=== PATIENT | male | born 1945 | race Caucasian/White ===

== ENCOUNTER 2021-08-25 10:46 | Emergency (ER) | payer MEDICARE ==
[~2021-08-25] VITALS: Ht 175.3 cm; Wt 79.4 kg
[2021-08-25] MEDS ORDERED: TAMSULOSIN HCL0.4 M1 PO ×2 (23:12)
[2021-08-25] MEDS ORDERED: METFORMIN HCL500 M3 PO ×2 (23:14)
[2021-08-25] MEDS ORDERED: LISI20 PO ×2 (23:14)
[2021-08-25] MEDS ORDERED: PRED5 PO ×2 (23:15)
[2021-08-25] MEDS ORDERED: Simvastatin40 MG PO ×2 (23:15)
[2021-08-25] MEDS ORDERED: HYDMOR4 PO ×2 (23:16)
[2021-08-25] MEDS ORDERED: NEURONTIN300 MG PO ×2 (23:16)
[2021-08-25] MEDS ORDERED: CYCL10 PO ×2 (23:18)
== END 2021-08-25 13:38 | disposition home or self-care (01) ==
LOC: ER 10:46
DX: K59.00 Constipation, unspecified (principal)
CPT/HCPCS: 74018; A9270

== ENCOUNTER 2021-08-25 22:11 | Observation (INO) | payer MEDICARE ==
[~2021-08-25] VITALS: Ht 175.3 cm; Wt 95.2 kg
[2021-08-25] MEDS ORDERED: TAMSULOSIN HCL0.4 M1 PO ×2 (23:12)
[2021-08-25 23:14] LABS: BASOPHILS ABSOLUTE AUTO 0.04 K/mm3 (0.00-0.23); BASOPHILS PERCENT AUTO 0 % (0-2); EOSINOPHILS ABSOLUTE AUTO 0.05 K/mm3 (0.00-0.68); EOSINOPHILS PERCENT AUTO 1 % (0-6); Hematocrit 35.2 % (37.0-53.0); Hemoglobin 11.7 g/dL (13.5-17.5); IMMATURE GRAN PERCENT AUTO 1 % (0-1); LYMPHOCYTES ABSOLUTE AUTO 1.48 K/mm3 (0.84-5.20); LYMPHOCYTES PERCENT AUTO 13 % (21-46); MONOCYTES ABSOLUTE AUTO 0.77 K/mm3 (0.16-1.47); MONOCYTES PERCENT AUTO 7 % (4-13); Mean Corpuscular HGB 30.8 pg (26.0-34.0); Mean Corpuscular HGB Conc 33.2 g/dL (31.5-36.5); Mean Corpuscular Volume 93 fL (80-100); Mean Platelet Volume 8.8 fL (9.1-12.4); NEUTROPHILS ABSOLUTE AUTO 8.63 K/mm3 (1.96-9.15); NEUTROPHILS PERCENT AUTO 78 % (41-73); Platelet Count 190 K/mm3 (150-400); RDW Coefficient Variation 13.3 % (11.7-14.2); RDW Standard Deviation 45.1 fL (35.1-46.3); White Blood Cell Count 11.07 K/mm3 (4.00-11.30)
[2021-08-25] MEDS ORDERED: LISI20 PO ×2 (23:14)
[2021-08-25] MEDS ORDERED: METFORMIN HCL500 M3 PO ×2 (23:14)
[2021-08-25] MEDS ORDERED: Simvastatin40 MG PO ×2 (23:15)
[2021-08-25] MEDS ORDERED: PRED5 PO ×2 (23:15)
[2021-08-25] MEDS ORDERED: HYDMOR4 PO ×2 (23:16)
[2021-08-25] MEDS ORDERED: NEURONTIN300 MG PO ×2 (23:16)
[2021-08-25] MEDS ORDERED: CYCL10 PO ×2 (23:18)
[2021-08-25 23:40] LABS: Troponin I <0.015 ng/mL (0.000-0.040)
[2021-08-25 23:46] LABS: Alanine Aminotransfer (ALT/SGP 29 U/L (12-78); Albumin, Blood 3.1 g/dL (3.4-5.0); Albumin/Globulin Ratio 0.9 (0.8-1.8); Alk Phos 108 U/L (50-136); Anion Gap 5 mmol/L (6-16); Aspartate Aminotrans (AST/SGOT 20 U/L (12-37); Bilirubin, Total 0.8 mg/dL (0.1-1.0); Blood Urea Nitrogen 48 mg/dL (8-24); Bun/Creatinine Ratio 18.1 (12.0-20.0); CO2, Blood 30 mmol/L (21-32); Calcium, Blood 9.4 mg/dL (8.5-10.1); Chloride, Blood 101 mmol/L (98-108); Creatinine, Blood 2.65 mg/dL (0.60-1.20); Globulin, Blood 3.6 g/dL (2.2-4.0); Glomerular Filtration Rate 24 (60-); Glucose, Blood 264 mg/dL (70-99); Potassium, Blood 6.1 mmol/L (3.5-5.5); Sodium, Blood 136 mmol/L (136-145); Total Protein, Blood 6.7 g/dL (6.4-8.2)
[2021-08-26 04:06] LABS: Source, Urine Clean Catch
[2021-08-26 04:08] LABS: Blood, Urine 5+ (Neg); Glucose Qualitative, Urine 2+ (Neg); Ketones, Urine Neg (Neg); Leukocyte Esterase, Urine 1+ (Neg); Nitrite, Urine Neg (Neg); Protein, Urine 3+ (Neg); Specific Gravity, Urine 1.015 (1.003-1.022); Urobilinogen, Urine NORM (Normal)
[2021-08-26 04:31] LABS: Amorphous Light (0-Heavy); Appearance, Urine Hazy (Clear); Bacteria Few /hpf; Bilirubin, Urine 1+ (Neg); Color, Urine Yellow (P-Yellow); Red Blood Cells, Urine 50-100 /hpf (0-2); Squamous Epithelial Cells Rare /hpf (Few); White Blood Cells, Urine 0-2 /hpf (0-5)
--- NOTE | 2021-08-26 07:28 | NUR ---
PT IS ALERT AND ORIENTED X4. DENIES PAIN. SINCE ARRIVAL FROM ER, PT IS HAVING DIARRHEA. BASELINE PT IS INDEPENDENT AT HOME. BED ALARM ON. SBA TO THE COMMODE; HAS LIGHT DIZZYNESS.
[2021-08-26 08:11] LABS: Bun/Creatinine Ratio 17.9 (12.0-20.0); Calcium, Blood 8.2 mg/dL (8.5-10.1); Creatinine, Blood 2.62 mg/dL (0.60-1.20); Potassium, Blood 5.2 mmol/L (3.5-5.5)
[2021-08-26 08:17] LABS: Magnesium, Blood 5.5 mg/dL (1.6-2.4)
[2021-08-26 13:39] LABS: Albumin, Blood 2.8 g/dL (3.4-5.0); Anion Gap 1 mmol/L (6-16); Blood Urea Nitrogen 46 mg/dL (8-24); Bun/Creatinine Ratio 18.3 (12.0-20.0); CO2, Blood 32 mmol/L (21-32); Calcium, Blood 7.9 mg/dL (8.5-10.1); Chloride, Blood 107 mmol/L (98-108); Creatinine, Blood 2.51 mg/dL (0.60-1.20); Glomerular Filtration Rate 25 (60-); Glucose, Blood 157 mg/dL (70-99); Phosphorus, Blood 3.5 mg/dL (2.5-4.9); Potassium, Blood 4.8 mmol/L (3.5-5.5); Sodium, Blood 140 mmol/L (136-145)
[2021-08-26 13:45] LABS: Magnesium, Blood 5.3 mg/dL (1.6-2.4)
[2021-08-26 17:46] LABS: Source, Urine Clean Catch
[2021-08-26 17:56] LABS: Appearance, Urine Clear (Clear); Bilirubin, Urine Neg (Neg); Blood, Urine 2+ (Neg); Color, Urine Yellow (P-Yellow); Glucose Qualitative, Urine Neg (Neg); Ketones, Urine 1+ (Neg); Leukocyte Esterase, Urine Neg (Neg); Nitrite, Urine Neg (Neg); Protein, Urine 1+ (Neg); Urobilinogen, Urine NORM (Normal)
[2021-08-26 18:09] LABS: Bacteria Rare /hpf; Red Blood Cells, Urine 0-2 /hpf (0-2); Squamous Epithelial Cells Rare /hpf (Few); White Blood Cells, Urine 0-2 /hpf (0-5)
[2021-08-27 04:29] LABS: BASOPHILS ABSOLUTE AUTO 0.02 K/mm3 (0.00-0.23); BASOPHILS PERCENT AUTO 0 % (0-2); EOSINOPHILS ABSOLUTE AUTO 0.07 K/mm3 (0.00-0.68); EOSINOPHILS PERCENT AUTO 1 % (0-6); Hemoglobin 10.1 g/dL (13.5-17.5); IMMATURE GRAN ABSOLUTE AUTO 0.03 K/mm3 (0.00-0.10); IMMATURE GRAN PERCENT AUTO 0 % (0-1); LYMPHOCYTES PERCENT AUTO 12 % (21-46); MONOCYTES ABSOLUTE AUTO 0.56 K/mm3 (0.16-1.47); MONOCYTES PERCENT AUTO 8 % (4-13); Mean Corpuscular HGB 31.5 pg (26.0-34.0); Mean Corpuscular HGB Conc 33.7 g/dL (31.5-36.5); Mean Corpuscular Volume 94 fL (80-100); Mean Platelet Volume 8.6 fL (9.1-12.4); NEUTROPHILS ABSOLUTE AUTO 5.42 K/mm3 (1.96-9.15); NEUTROPHILS PERCENT AUTO 79 % (41-73); NRBC ABSOLUTE 0.02 K/mm3 (0.00-0.02); NRBC Auto 0.3 /100 WBC (0.0-0.2); Platelet Count 134 K/mm3 (150-400); RDW Coefficient Variation 13.2 % (11.7-14.2); RDW Standard Deviation 44.9 fL (35.1-46.3); Red Blood Cell Count 3.21 M/mm3 (4.30-5.90)
[2021-08-27 04:48] LABS: Albumin, Blood 2.3 g/dL (3.4-5.0); Albumin/Globulin Ratio 0.7 (0.8-1.8); Bilirubin, Total 0.9 mg/dL (0.1-1.0); Bun/Creatinine Ratio 18.6 (12.0-20.0); Calcium, Blood 8.1 mg/dL (8.5-10.1); Creatinine, Blood 2.21 mg/dL (0.60-1.20); Globulin, Blood 3.4 g/dL (2.2-4.0); Magnesium, Blood 4.1 mg/dL (1.6-2.4); Potassium, Blood 4.9 mmol/L (3.5-5.5); Total Protein, Blood 5.7 g/dL (6.4-8.2)
--- NOTE | 2021-08-27 05:41 | NUR ---
SHIFT SUMMARY ADMITTED FOR CONSITPATION AND DECREASE INTAKE. PT REPORTS DIARRHEA YESTERDAY, NO BM T/O SHIFT. INCONTINENT VOID WITH ATTENDS IN PLACE AND USE OF URINAL. PT AOX4. REPORTS GENERALIZE WEAKNESS AND SEVERE BACK PAIN OVERNIGHT. CALLED DR. LAINEZ TO REQUEST FOR PAIN MEDS BECAUSE PT STARTING TO FEEL NAUSEATED WITH PAIN.TYLENOL 650MG GIVEN, PAIN WITHOUT IMPROVEMENT. FENTANYL 25-50MCG ORDERED. GIVEN 50MCG X1, PAIN HAS IMPROVED. LINEN CHANGED LAST NIGHT, URINE LEAKED ON BED SHEETS. BED BATH DONE. PT REPORTS L FOOT FEELS MORE TIGHT AND SWOLLEN COMPARED LAST NIGHT. FLUIDS INFUSING. HELD AN HOUR AGO TO CONFIRM WITH DAY SHIFT TO ADDRESS INCREASED SWELLING ON L FOOT. CBG HAS BEEN WNL, NO COVERAGE NEEDED. CALL LIGHT WITHIN REACH. WILL PROVIDE REPORT TO ONCOMING NURSE.
--- NOTE | 2021-08-27 08:15 | NUR ---
C/O BACK PAIN AND LLE PAIN THIS AM, BLE'S ELEVATED ON PILLOWS, LLE SLIGHTLY SWOLLEN, CONT. TO MONITOR FOR ANY CHANGES.
--- NOTE | 2021-08-27 09:49 | NUR ---
DR. CASTRO HERE TO SEE PT.
[2021-08-27] MEDS ORDERED: DOCUZEN 8.6-501 EACH PO ×2 (12:43)
[2021-08-27] MEDS ORDERED: MIRALAX17 GM PO ×2 (12:44)
== END 2021-08-27 15:20 | disposition home or self-care (01) ==
LOC: ER 22:11 → SURS 08-26 02:29 → ERHOLD 08-26 02:29 → SURS 08-26 05:33
PROVIDERS: Emergency Medicine; Family Medicine; Internal Medicine; ADMIT Internal Medicine
DX: K59.00 Constipation, unspecified (principal); N17.9 Acute kidney failure, unspecified; I95.9 Hypotension, unspecified; E87.5 Hyperkalemia; N20.0 Calculus of kidney; I10 Essential (primary) hypertension; E78.5 Hyperlipidemia, unspecified; E11.9 Type 2 diabetes mellitus without complications; C61 Malignant neoplasm of prostate; G89.29 Other chronic pain; M54.40 Lumbago with sciatica, unspecified side; E83.41 Hypermagnesemia; S80.812A Abrasion, left lower leg, initial encounter; Z79.84 Long term (current) use of oral hypoglycemic drugs; Z87.442 Personal history of urinary calculi; W19.XXXA Unspecified fall, initial encounter; Y92.231 Patient bathroom in hospital as the place of occurrence of the external cause; Z79.891 Long term (current) use of opiate analgesic; Z79.52 Long term (current) use of systemic steroids
CPT/HCPCS: 36415; 74176; 80048; 80053; 80069; 81001; 82947; 83690; 83735; 84100; 84145; 84484; 85025; 87086; 93005; 93010; 96372; 96375; 96376; 97161; 97530; A9270; G0378; J1650; J1815; J1885; J1940; J3010; J7030; J7120

== ENCOUNTER 2022-03-05 10:14 | Emergency (ER) | payer MEDICARE ==
[~2022-03-05] VITALS: Ht 175.3 cm; Wt 79.4 kg
[~2022-03-05 10:14] MED LIST: CYCL10 PO; DOCUZEN 8.6-501 EACH PO; HYDMOR4 PO; LISI20 PO; METFORMIN HCL500 M3 PO; MIRALAX17 GM PO; NEURONTIN300 MG PO; PRED5 PO; Simvastatin40 MG PO; TAMSULOSIN HCL0.4 M1 PO
[2022-03-05] MEDS ORDERED: ASPI81CH PO (11:04)
[2022-03-05] MEDS ORDERED: HYDROCODONE-AC1 EAC7 PO (11:05)
[2022-03-05] MEDS ORDERED: ABIRATERONE AC250 MG PO (11:06)
[2022-03-05] MEDS ORDERED: METF500 PO (11:06)
[2022-03-05] MEDS ORDERED: LISI20 PO (11:06)
[2022-03-05] MEDS ORDERED: LUPRON DEPOT7.5 M1 IM (11:07)
[2022-03-05] MEDS ORDERED: B-121000 MC7 PO (11:08)
[2022-03-05] MEDS ORDERED: FERSU300 PO (11:09)
[2022-03-05] MEDS ORDERED: IRON18 MG PO (11:10)
[2022-03-05 11:20] LABS: BASOPHILS ABSOLUTE AUTO 0.03 K/mm3 (0.00-0.23); BASOPHILS PERCENT AUTO 0 % (0-2); EOSINOPHILS ABSOLUTE AUTO 0.06 K/mm3 (0.00-0.68); EOSINOPHILS PERCENT AUTO 1 % (0-6); Hematocrit 38.5 % (37.0-53.0); Hemoglobin 13.3 g/dL (13.5-17.5); IMMATURE GRAN ABSOLUTE AUTO 0.09 K/mm3 (0.00-0.10); IMMATURE GRAN PERCENT AUTO 1 % (0-1); LYMPHOCYTES ABSOLUTE AUTO 2.21 K/mm3 (0.84-5.20); LYMPHOCYTES PERCENT AUTO 22 % (21-46); MONOCYTES ABSOLUTE AUTO 0.57 K/mm3 (0.16-1.47); MONOCYTES PERCENT AUTO 6 % (4-13); Mean Corpuscular HGB 30.9 pg (26.0-34.0); Mean Corpuscular HGB Conc 34.5 g/dL (31.5-36.5); Mean Corpuscular Volume 89 fL (80-100); Mean Platelet Volume 9.1 fL (9.1-12.4); NEUTROPHILS ABSOLUTE AUTO 7.05 K/mm3 (1.96-9.15); NEUTROPHILS PERCENT AUTO 70 % (41-73); Platelet Count 255 K/mm3 (150-400); RDW Coefficient Variation 13.4 % (11.7-14.2); RDW Standard Deviation 44.3 fL (35.1-46.3); Red Blood Cell Count 4.31 M/mm3 (4.30-5.90); White Blood Cell Count 10.01 K/mm3 (4.00-11.30)
[2022-03-05 11:32] LABS: Albumin, Blood 3.7 g/dL (3.4-5.0); Albumin/Globulin Ratio 0.9 (0.8-1.8); Bilirubin, Total 0.5 mg/dL (0.1-1.0); Bun/Creatinine Ratio 27.5 (12.0-20.0); Calcium, Blood 10.1 mg/dL (8.5-10.1); Creatinine, Blood 1.82 mg/dL (0.60-1.20); Globulin, Blood 4.3 g/dL (2.2-4.0); Potassium, Blood 4.5 mmol/L (3.5-5.5)
[2022-03-05 12:21] LABS: Influenza A, PCR NEGATIVE (NEGATIVE); Influenza B, PCR NEGATIVE (NEGATIVE); Resp Syncytial Virus, PCR NEGATIVE (NEGATIVE)
[2022-03-05 12:28] LABS: SARS-Cov-2 (COVID-19) PCR, MMC POSITIVE (NEGATIVE)
== END 2022-03-05 14:15 | disposition home or self-care (01) ==
LOC: ER 10:14
PROVIDERS: Emergency Medicine; Physician Assistant
DX: U07.1 COVID-19 (principal); E86.0 Dehydration; I10 Essential (primary) hypertension; E11.9 Type 2 diabetes mellitus without complications; E78.5 Hyperlipidemia, unspecified; Z79.899 Other long term (current) drug therapy; Z79.84 Long term (current) use of oral hypoglycemic drugs
CPT/HCPCS: 0241U; 36415; 71045; 80053; 84484; 85025; J7030

== ENCOUNTER 2022-03-10 14:40 | Inpatient (IN) | payer MEDICARE ==
[~2022-03-10] VITALS: Ht 175.3 cm; Wt 81.2 kg
[~2022-03-10 14:40] MED LIST changes: +ABIRATERONE AC250 MG PO; +ASPI81CH PO; +B-121000 MC7 PO; +FERSU300 PO; +HYDROCODONE-AC1 EAC7 PO; +IRON18 MG PO; +LUPRON DEPOT7.5 M1 IM; +METF500 PO
[2022-03-10 15:44] LABS: PCO2 Arterial 22.2 mmHg (35-45); PO2 Arterial 109 mmHg (80-100); pH Blood Arterial 7.34 (7.35-7.45)
[2022-03-10 15:54] LABS: BASOPHILS ABSOLUTE AUTO 0.05 K/mm3 (0.00-0.23); BASOPHILS PERCENT AUTO 1 % (0-2); EOSINOPHILS ABSOLUTE AUTO 0.06 K/mm3 (0.00-0.68); EOSINOPHILS PERCENT AUTO 1 % (0-6); Hematocrit 36.8 % (37.0-53.0); Hemoglobin 12.3 g/dL (13.5-17.5); IMMATURE GRAN ABSOLUTE AUTO 0.14 K/mm3 (0.00-0.10); IMMATURE GRAN PERCENT AUTO 1 % (0-1); LYMPHOCYTES PERCENT AUTO 26 % (21-46); MONOCYTES ABSOLUTE AUTO 0.97 K/mm3 (0.16-1.47); MONOCYTES PERCENT AUTO 9 % (4-13); Mean Corpuscular HGB 30.1 pg (26.0-34.0); Mean Corpuscular HGB Conc 33.4 g/dL (31.5-36.5); Mean Corpuscular Volume 90 fL (80-100); Mean Platelet Volume 9.2 fL (9.1-12.4); NEUTROPHILS ABSOLUTE AUTO 6.64 K/mm3 (1.96-9.15); NEUTROPHILS PERCENT AUTO 62 % (41-73); Platelet Count 356 K/mm3 (150-400); RDW Coefficient Variation 13.2 % (11.7-14.2); RDW Standard Deviation 43.5 fL (35.1-46.3); Red Blood Cell Count 4.08 M/mm3 (4.30-5.90); White Blood Cell Count 10.66 K/mm3 (4.00-11.30)
[2022-03-10 16:06] LABS: Albumin, Blood 2.9 g/dL (3.4-5.0); Albumin/Globulin Ratio 0.7 (0.8-1.8); Bilirubin, Total 0.4 mg/dL (0.1-1.0); Bun/Creatinine Ratio 22.3 (12.0-20.0); Creatinine, Blood 2.24 mg/dL (0.60-1.20); Globulin, Blood 4.4 g/dL (2.2-4.0); Potassium, Blood 5.1 mmol/L (3.5-5.5); Total Protein, Blood 7.3 g/dL (6.4-8.2)
[2022-03-10 18:46] LABS: Percent Saturation 22.8 % (20.0-50.0)
[2022-03-10 21:54] LABS: Source, Urine Clean Catch
[2022-03-10 22:06] LABS: Bilirubin, Urine Neg (Neg); Blood, Urine Neg (Neg); Glucose Qualitative, Urine Neg (Neg); Ketones, Urine 2+ (Neg); Leukocyte Esterase, Urine 1+ (Neg); Nitrite, Urine Neg (Neg); Protein, Urine 1+ (Neg); Urobilinogen, Urine NORM (Normal)
[2022-03-10 22:28] LABS: Amorphous Heavy (0-Heavy); Appearance, Urine Cloudy (Clear); Bacteria Mod /hpf; Color, Urine Yellow (P-Yellow); Red Blood Cells, Urine 0-2 /hpf (0-2); Squamous Epithelial Cells Few /hpf (Few)
[2022-03-11 05:22] LABS: BASOPHILS ABSOLUTE AUTO 0.01 K/mm3 (0.00-0.23); BASOPHILS PERCENT AUTO 0 % (0-2); EOSINOPHILS PERCENT AUTO 0 % (0-6); Hematocrit 29.5 % (37.0-53.0); IMMATURE GRAN ABSOLUTE AUTO 0.05 K/mm3 (0.00-0.10); IMMATURE GRAN PERCENT AUTO 1 % (0-1); LYMPHOCYTES ABSOLUTE AUTO 0.48 K/mm3 (0.84-5.20); LYMPHOCYTES PERCENT AUTO 9 % (21-46); MONOCYTES ABSOLUTE AUTO 0.11 K/mm3 (0.16-1.47); MONOCYTES PERCENT AUTO 2 % (4-13); Mean Corpuscular HGB 30.3 pg (26.0-34.0); Mean Corpuscular HGB Conc 33.9 g/dL (31.5-36.5); Mean Corpuscular Volume 89 fL (80-100); NEUTROPHILS ABSOLUTE AUTO 4.94 K/mm3 (1.96-9.15); NEUTROPHILS PERCENT AUTO 88 % (41-73); Platelet Count 180 K/mm3 (150-400); RDW Coefficient Variation 12.6 % (11.7-14.2); RDW Standard Deviation 41.6 fL (35.1-46.3); White Blood Cell Count 5.59 K/mm3 (4.00-11.30)
--- NOTE | 2022-03-11 06:31 | NUR ---
SHIFT SUMMARY PATIENT ARRIVED TO ROOM 313 VIA STRETCHER AT 2114. HE IS ALERT AND ORIENTED X3. SLIGHTLY FORGETFUL. IS ABLE TO AMBULATE SHORT DISTANCES WITH ASSISTANCE AND A FRONT WHEELED WALKER. MEDICATED PER EMAR FOR PAIN. HAD NO COMPLAINTS OF SHORTNESS OF BREATH. NO ACUTE ISSUES NOTED OVERNIGHT. CALL LIGHT WITHIN REACH. REPORT GIVEN TO ONCOMING RN.
[2022-03-11 07:28] LABS: Albumin, Blood 2.3 g/dL (3.4-5.0); Albumin/Globulin Ratio 0.7 (0.8-1.8); Bilirubin, Total 0.4 mg/dL (0.1-1.0); Bun/Creatinine Ratio 23.6 (12.0-20.0); Calcium, Blood 8.1 mg/dL (8.5-10.1); Creatinine, Blood 1.78 mg/dL (0.60-1.20); Globulin, Blood 3.3 g/dL (2.2-4.0); Potassium, Blood 6.1 mmol/L (3.5-5.5); Total Protein, Blood 5.6 g/dL (6.4-8.2)
--- NOTE | 2022-03-11 07:36 | NUR ---
CALLED DR MERRILL WITH A CRITICAL VALUE- POTASSIUM LEVEL 6.1. RECIEVED AN ORDER FOR 10 UNITS OF IV INSULIN AND 1/2 AMP OF D50. PLACED ORDERS IN ORDER MANAGEMENT.
--- NOTE | 2022-03-11 16:55 | NUR ---
SHIFT SUMMARY- PT HAD A CRITICALLY HIGH POTASSIUM THIS MORNING. MEDICATED WITH D 50 AND INSULIN IV. PT BG HAS REMAINED STABLE THROUGH THE TREATMENT. PT REPEAT POTASSIUM WAS WNL. MD CAME TO SEE THE PT AND FOUND OUT THE PT HAD SUDDENLY STOPPED TAKIG HIS CANCER DRUG AND HIS PREDNISONE. PT WAS PLACED BACK ON BOTH DRUGS.IVF STOPPED. PT PLACED ON TELE FOR THE ELEVATED POTASIUM, NO EVENTS. PT HAS HAD NO OTHER ACUTE CHANGES T/O THE DAY. PT CURRENTLY IN BED, CALL LIGHT IN REACH NO S&S OF DISTESS NOTED WILL CTM AND PASS ON TO NIGHT RN IN REPORT. PT IN ISOLATION COVID POSSITIVE.
[2022-03-12 05:23] LABS: BASOPHILS ABSOLUTE AUTO 0.01 K/mm3 (0.00-0.23); BASOPHILS PERCENT AUTO 0 % (0-2); EOSINOPHILS PERCENT AUTO 0 % (0-6); Hematocrit 27.8 % (37.0-53.0); Hemoglobin 9.5 g/dL (13.5-17.5); IMMATURE GRAN ABSOLUTE AUTO 0.06 K/mm3 (0.00-0.10); IMMATURE GRAN PERCENT AUTO 1 % (0-1); LYMPHOCYTES ABSOLUTE AUTO 0.78 K/mm3 (0.84-5.20); LYMPHOCYTES PERCENT AUTO 9 % (21-46); MONOCYTES ABSOLUTE AUTO 0.58 K/mm3 (0.16-1.47); MONOCYTES PERCENT AUTO 7 % (4-13); Mean Corpuscular HGB 30.3 pg (26.0-34.0); Mean Corpuscular HGB Conc 34.2 g/dL (31.5-36.5); Mean Corpuscular Volume 89 fL (80-100); Mean Platelet Volume 9.4 fL (9.1-12.4); NEUTROPHILS ABSOLUTE AUTO 6.95 K/mm3 (1.96-9.15); NEUTROPHILS PERCENT AUTO 83 % (41-73); Platelet Count 213 K/mm3 (150-400); RDW Coefficient Variation 12.8 % (11.7-14.2); RDW Standard Deviation 41.2 fL (35.1-46.3); Red Blood Cell Count 3.14 M/mm3 (4.30-5.90); White Blood Cell Count 8.38 K/mm3 (4.00-11.30)
--- NOTE | 2022-03-12 06:30 | NUR ---
SHIFT SUMMARY PATIENT ALERT AND ORIENTED X3. HAD NO COMPLAINTS OF PAIN OR SHORTNESS OF BREATH. NO ACUTE ISSUES NOTED OVERNIGHT. CALL LIGHT WITHIN REACH. REPORT GIVEN TO ONCOMING RN.
[2022-03-12 07:45] LABS: Bun/Creatinine Ratio 22.5 (12.0-20.0); Calcium, Blood 8.8 mg/dL (8.5-10.1); Creatinine, Blood 1.69 mg/dL (0.60-1.20); Potassium, Blood 4.6 mmol/L (3.5-5.5)
[2022-03-12] MEDS ORDERED: AMLO5 PO (11:52)
[2022-03-12] MEDS ORDERED: ELIQUIS5 M2 PO (11:52)
--- NOTE | 2022-03-12 12:57 | NUR ---
DISHCHARGE SUMMARY IV AND TELE REMOVED PRIOR TO DISCHARGE. DISCHARGE EDUCATION REVIEWED WITH AND SIGNED BY PT. MEDS FAXED INTO PT PHARMACY. PCP LIST GIVEN FOR PT TO ESTABLISH A PCP IN THE AREA. PT IS NEW TO [facility]. PERSONAL BELONGINGS GATHERED AND TRANSPORTED ALONG WITH PT VIA WHEELCHAIR TO [facility] WHERE HE WAS MET BY HIS RIDE.
== END 2022-03-12 12:49 | disposition home or self-care (01) | DRG 643 ==
LOC: ER 14:40 → MEDS 18:23
PROVIDERS: Physician Assistant; ADMIT Internal Medicine
PROC: 8E0ZXY6 Isolation (ICD-10-PCS; principal; 2022-03-10)
DX: E27.3 Drug-induced adrenocortical insufficiency (principal); U07.1 COVID-19; N17.9 Acute kidney failure, unspecified; E87.2 Acidosis; R65.10 Systemic inflammatory response syndrome (SIRS) of non-infectious origin without acute organ dysfunction; I95.1 Orthostatic hypotension; E27.2 Addisonian crisis; C61 Malignant neoplasm of prostate; E86.0 Dehydration; E87.5 Hyperkalemia; I12.9 Hypertensive chronic kidney disease with stage 1 through stage 4 chronic kidney disease, or unspecified chronic kidney disease; N18.32 Chronic kidney disease, stage 3b; E11.22 Type 2 diabetes mellitus with diabetic chronic kidney disease; M54.50 Low back pain, unspecified; D50.9 Iron deficiency anemia, unspecified; E78.00 Pure hypercholesterolemia, unspecified; T38.0X5A Adverse effect of glucocorticoids and synthetic analogues, initial encounter; E86.1 Hypovolemia; G89.29 Other chronic pain; E88.09 Other disorders of plasma-protein metabolism, not elsewhere classified; Z79.52 Long term (current) use of systemic steroids; Z79.899 Other long term (current) drug therapy; Z79.82 Long term (current) use of aspirin; Z79.891 Long term (current) use of opiate analgesic; Z79.811 Long term (current) use of aromatase inhibitors; Z79.84 Long term (current) use of oral hypoglycemic drugs; Z87.442 Personal history of urinary calculi; Z98.890 Other specified postprocedural states; Z90.79 Acquired absence of other genital organ(s)
CPT/HCPCS: 36415; 36600; 71045; 80048; 80053; 81001; 82728; 82803; 82947; 83540; 83550; 83605; 83735; 84132; 84145; 85025; 87040; 87086; 93005; 93010; 96374; 96375; 99285-25; A9270; J0696; J1720; J1815; J1817; J7030; J7120; J7512

== ENCOUNTER 2022-11-01 03:44 | Inpatient (IN) | payer OTHER ==
[~2022-11-01] VITALS: Ht 175.3 cm; Wt 71.2 kg
[~2022-11-01 03:44] MED LIST changes: +AMLO5 PO; -ASPI81CH PO; +CEPH500 PO; +ELIQUIS5 M2 PO; -HYDROCODONE-AC1 EAC7 PO; -PRED5 PO; +Prednisone10 MG PO
[2022-11-01 04:16] LABS: BASOPHILS ABSOLUTE AUTO 0.05 K/mm3 (0.00-0.23); BASOPHILS PERCENT AUTO 0 % (0-2); EOSINOPHILS ABSOLUTE AUTO 0.03 K/mm3 (0.00-0.68); EOSINOPHILS PERCENT AUTO 0 % (0-6); Hematocrit 41.4 % (37.0-53.0); Hemoglobin 13.6 g/dL (13.5-17.5); IMMATURE GRAN ABSOLUTE AUTO 0.04 K/mm3 (0.00-0.10); IMMATURE GRAN PERCENT AUTO 0 % (0-1); LYMPHOCYTES ABSOLUTE AUTO 1.42 K/mm3 (0.84-5.20); LYMPHOCYTES PERCENT AUTO 13 % (21-46); MONOCYTES ABSOLUTE AUTO 0.87 K/mm3 (0.16-1.47); MONOCYTES PERCENT AUTO 8 % (4-13); Mean Corpuscular HGB 25.7 pg (26.0-34.0); Mean Corpuscular HGB Conc 32.9 g/dL (31.5-36.5); Mean Corpuscular Volume 78 fL (80-100); Mean Platelet Volume 8.5 fL (9.1-12.4); NEUTROPHILS ABSOLUTE AUTO 8.92 K/mm3 (1.96-9.15); NEUTROPHILS PERCENT AUTO 79 % (41-73); Platelet Count 303 K/mm3 (150-400); RDW Coefficient Variation 14.2 % (11.7-14.2); RDW Standard Deviation 39.8 fL (35.1-46.3); White Blood Cell Count 11.33 K/mm3 (4.00-11.30)
[2022-11-01 04:36] LABS: Albumin/Globulin Ratio 0.7 (0.8-1.8); Bilirubin, Total 0.5 mg/dL (0.1-1.0); Bun/Creatinine Ratio 35.7 (12.0-20.0); Calcium, Blood 12.7 mg/dL (8.5-10.1); Creatinine, Blood 1.99 mg/dL (0.60-1.20); Globulin, Blood 4.6 g/dL (2.2-4.0); Potassium, Blood 4.3 mmol/L (3.5-5.5); Total Protein, Blood 7.6 g/dL (6.4-8.2)
[2022-11-01 05:44] LABS: Influenza A, PCR NEGATIVE (NEGATIVE); Influenza B, PCR NEGATIVE (NEGATIVE); Resp Syncytial Virus, PCR NEGATIVE (NEGATIVE); SARS-Cov-2 (COVID-19) PCR, MMC NEGATIVE (NEGATIVE)
--- NOTE | 2022-11-01 11:42 | NUR ---
PT ARRIVED TO THE MEDICAL FLOOR A/OX 4, VIA WHEELCHAR AROUND 0800. PT WAS ORIENTED TO THE ROOM LAYOUT AND CALL SYSTEM. THE PT WAS REPORTING PAIN IN HIS ABD 05/28. A CALL WAS MADE TO DR. RAY ORDERS WAS GIVEN FOR MORPHINE AND ADMINISTERED. PT WAS MEDICATED FOR NAUSEA WELL.
[2022-11-01] MEDS ORDERED: HYDROCODONE-AC1 EAC7 PO (12:53)
[2022-11-01] MEDS ORDERED: TOLTERODINE TART4 MG PO (12:54)
[2022-11-01] MEDS ORDERED: FARXIGA10 MG PO (12:55)
[2022-11-01] MEDS ORDERED: PRED FORTE5 M1 BOTHEYES (12:56)
[2022-11-01] MEDS ORDERED: IBU800 M1 PO (12:59)
[2022-11-01] MEDS ORDERED: ASPI81CH PO (13:04)
--- NOTE | 2022-11-01 16:53 | NUR ---
PT IS A/OX4, PLEASANT AND COOPERATIVE. THE PT APPEARS TO BE BREATHING EASILY AT REST ON RA. THE PT BECOMES SOB WITH MINIMAL ACTIVITY. THE PT REPORTED ABD PAIN T/O THE DAY. THE PT WAS MEDICATED FOR PAIN T/O THE DAY. PT WAS MEDICATED FOR N/V X1 SO FAR THIS SHIFT. THE PT WORKED WITH THE PHYSICAL THERAPIST THIS AFTERNOON. CALL LIGHT IN REACH. WILL CONTINUE TO MONITOR AND ASSESS FOR CHANGES
[2022-11-02 04:54] LABS: BASOPHILS ABSOLUTE AUTO 0.04 K/mm3 (0.00-0.23); BASOPHILS PERCENT AUTO 0 % (0-2); EOSINOPHILS ABSOLUTE AUTO 0.03 K/mm3 (0.00-0.68); EOSINOPHILS PERCENT AUTO 0 % (0-6); Hematocrit 41.9 % (37.0-53.0); Hemoglobin 12.8 g/dL (13.5-17.5); IMMATURE GRAN ABSOLUTE AUTO 0.04 K/mm3 (0.00-0.10); IMMATURE GRAN PERCENT AUTO 0 % (0-1); LYMPHOCYTES PERCENT AUTO 5 % (21-46); MONOCYTES ABSOLUTE AUTO 0.99 K/mm3 (0.16-1.47); MONOCYTES PERCENT AUTO 6 % (4-13); Mean Corpuscular HGB 25.6 pg (26.0-34.0); Mean Corpuscular HGB Conc 30.5 g/dL (31.5-36.5); Mean Platelet Volume 8.8 fL (9.1-12.4); NEUTROPHILS ABSOLUTE AUTO 14.48 K/mm3 (1.96-9.15); NEUTROPHILS PERCENT AUTO 89 % (41-73); Platelet Count 228 K/mm3 (150-400); RDW Coefficient Variation 14.6 % (11.7-14.2); RDW Standard Deviation 44.6 fL (35.1-46.3); White Blood Cell Count 16.38 K/mm3 (4.00-11.30)
[2022-11-02 05:18] LABS: Albumin, Blood 2.4 g/dL (3.4-5.0); Albumin/Globulin Ratio 0.6 (0.8-1.8); Bilirubin, Total 0.2 mg/dL (0.1-1.0); Bun/Creatinine Ratio 28.9 (12.0-20.0); Calcium, Blood 10.8 mg/dL (8.5-10.1); Creatinine, Blood 2.46 mg/dL (0.60-1.20); Globulin, Blood 3.8 g/dL (2.2-4.0); Potassium, Blood 5.1 mmol/L (3.5-5.5); Total Protein, Blood 6.2 g/dL (6.4-8.2)
[2022-11-02 05:28] LABS: Mean Corpuscular Volume 84 fL (80-100)
--- NOTE | 2022-11-02 06:27 | NUR ---
shift summery, pt rested well durring the night pt given pain meds q 4hrs. pt alert when spoken to and awakes easily. call light in reach bed alarm on.
--- NOTE | 2022-11-02 17:14 | NUR ---
PT IS A/OXX3, PLEASANT AND COOPERATIVE. PT IS UP WITH ASSIST. PT SEEMS AND REPPORTS FEELING WEAKER ON HIS FEET COMPARED TO YESTERDAY. PT WAS MEDICATED FOR PAIN AND NAUSEA X2 SO FAR THIS SHIFT. PT APPEARS TO BE BREATHING EASILY ON RA AT REST PT IS SOB WITH ACTIVITY. PT HAS VERY POOR PO INTAKE, REFUSING MOST OF HIS MEALS. CALL LIGHT IN REACH. WILL CONTINUE TO MONITOR AND ASSESS FOR CHANGES
--- NOTE | 2022-11-03 05:14 | NUR ---
SHIFT SUMMERY. PT SEEMS TO BECOMMING WEAKER AND MORE CONFUSED. DAY SHIFT HAD STATED PT HAD STARTED HAVING A TREMMOR. PT YESTERDAY WAS ABLE TO AMBULATE TO br WITH WALKER AND STAND BY ASSIST. AT START OF SHIFT TONIGHT PT WANTING TO GO TO BY PT ABEL TORRES AND ON THE WAY BACK TO BED PTS KNEES GAVE OUT PT COUGHT HIMSELF BUT NOT SAFE TO WALK TO BR. THE NEXT TIME PT WANTED TO GO TO BR PT INSISTING ON WALKING TO BR. BUT WAS ABLE TO GET PT TO USE BSC WITHHELP OF TELEVISION ANTENNA INSTALLER. PT HAVING MORE DIFFICULTY STANDING AND WAS TREMBLING MORE SOME SUDDEN JERKING MOTIONS ALSO. PTS MENTATION ALSO IS SEEMING TO DECREASE. CBG TAKEN AND WAS 78, PT NOT WANTING TO EAT ANYTHING BUT GOT PT TO EAT ICE CREAM AND CHEESE. ASKED PT IF HE DRANK ALCOHOL,PT STATED HE DRINKS A SHORT ARTHUR DAILY. PT HAD 2 BMS THE FIRST WAS VERY SOFT, THE SECOND WAS VERY LG AND PART WAS FORMED SOLID AND BROWN PART WAS VERY SOFT AND RUST COLORED, UNSURE IF THE RUST COLOR WAS BLOOD OR JUST HIS DIET. CALL LIGHT IN REACH AND BED ALARM ON.
[2022-11-03 06:29] LABS: Hematocrit 37.6 % (37.0-53.0); Hemoglobin 11.8 g/dL (13.5-17.5); Mean Corpuscular HGB 26.3 pg (26.0-34.0); Mean Corpuscular HGB Conc 31.4 g/dL (31.5-36.5); Mean Corpuscular Volume 84 fL (80-100); Mean Platelet Volume 9.2 fL (9.1-12.4); Platelet Count 192 K/mm3 (150-400); RDW Coefficient Variation 14.8 % (11.7-14.2); RDW Standard Deviation 44.9 fL (35.1-46.3); Red Blood Cell Count 4.48 M/mm3 (4.30-5.90); White Blood Cell Count 17.69 K/mm3 (4.00-11.30)
[2022-11-03 06:52] LABS: Bun/Creatinine Ratio 25.9 (12.0-20.0); Calcium, Blood 10.3 mg/dL (8.5-10.1); Creatinine, Blood 2.43 mg/dL (0.60-1.20)
[2022-11-03 07:28] LABS: BASOPHILS PERCENT MAN 0 % (0-2); EOSINOPHILS PERCENT MAN 0 % (0-6); LYMPHOCYTES ABSOLUTE MAN 0.35 K/mm3 (0.84-5.20); LYMPHOCYTES PERCENT MAN 2 % (21-46); MONOCYTES ABSOLUTE MAN 0.88 K/mm3 (0.16-1.47); MONOCYTES PERCENT MAN 5 % (4-13); NEUTROPHILS ABSOLUTE MAN 16.45 K/mm3 (1.96-9.15); SEG NEUTROPHILS PERCENT MAN 93 % (41-73); TOTAL CELLS COUNTED 100
[2022-11-03 13:32] LABS: Source, Urine Straight Cath
[2022-11-03 13:49] LABS: Appearance, Urine Clear (Clear); Bilirubin, Urine Neg (Neg); Blood, Urine Neg (Neg); Color, Urine Yellow (P-Yellow); Glucose Qualitative, Urine Neg (Neg); Ketones, Urine 1+ (Neg); Leukocyte Esterase, Urine Neg (Neg); Nitrite, Urine Neg (Neg); Protein, Urine 2+ (Neg); Urobilinogen, Urine NORM (Normal)
[2022-11-03 14:01] LABS: Prostate Specific Antigen 0.035 ng/mL (0.000-4.000)
[2022-11-03 14:08] LABS: Amorphous Light (0-Heavy); Bacteria Many /hpf; Hyaline Casts 0-2 /lpf (0-2); Red Blood Cells, Urine 0-2 /hpf (0-2); Squamous Epithelial Cells Few /hpf (Few)
[2022-11-03 14:24] LABS: Creatinine, Urine Random 49.4 mg/dL (27.00-270.00)
--- NOTE | 2022-11-03 17:26 | NUR ---
SHIFT SUMMARY PATIENT DENIES PAIN, NAUSEA, AND SHORTNESS OF BREATH. PATIENT IS A&O X1 THIS SHIFT. PATIENT SPEECH IS GARBLED, SLOW TO RESPOND. PATIENT HAVING VERY JERKY MOVEMENTS. PATIENT UNABLE TO FOLLOW COMMANDS. PATIENT NOT FOLLOWING COMMANDS TO SWALLOW. NOTIFIED. NEW ORDERS FOR UA, ST EVAL, CHEST CT, AND ABX CHANGES. PATIENT STRAIGHT CATHED FOR UA. PATIENT FAMILY AT BEDSIDE AND UPDATED. ST RECOMMENDING NPO, MEDS CRUSHED IN APPLESAUCE, ICE CHIPS FOR PLEASURE. CHEST AND HEAD CT COMPLETE. PATIENT MORE ALERT IN AFTERNOON, BUT STILL ORIENTED TO SELF. PATIENT SLEPT MOST OF SHIFT. PATIENT IS PLEASANT AND COOPERATIVE WITH CARE.
--- NOTE | 2022-11-04 02:05 | NUR ---
SHIFT SUMMERY, PT RESTING WELL IN BED, PT SEEMS TO BE A LITTLE LESS CONFUSED ANS MORE ALERT THAN AT BEGINNING OF SHIFT. PT CONTINUES TO BE INCONT OF URINE AND IS BEING CHANGED AND TURNED . BUT PT IS ABLE TO TURN SELF WHEN ASKED IN ORDER TO BE CHANGED. CALL LIGHT IN REACH AND BED ALARM ON.
[2022-11-04 06:07] LABS: BASOPHILS ABSOLUTE AUTO 0.01 K/mm3 (0.00-0.23); BASOPHILS PERCENT AUTO 0 % (0-2); EOSINOPHILS PERCENT AUTO 0 % (0-6); Hematocrit 31.1 % (37.0-53.0); Hemoglobin 9.7 g/dL (13.5-17.5); IMMATURE GRAN ABSOLUTE AUTO 0.07 K/mm3 (0.00-0.10); IMMATURE GRAN PERCENT AUTO 1 % (0-1); LYMPHOCYTES ABSOLUTE AUTO 0.36 K/mm3 (0.84-5.20); LYMPHOCYTES PERCENT AUTO 3 % (21-46); MONOCYTES ABSOLUTE AUTO 0.51 K/mm3 (0.16-1.47); MONOCYTES PERCENT AUTO 5 % (4-13); Mean Corpuscular HGB 25.6 pg (26.0-34.0); Mean Corpuscular HGB Conc 31.2 g/dL (31.5-36.5); Mean Corpuscular Volume 82 fL (80-100); Mean Platelet Volume 9.3 fL (9.1-12.4); NEUTROPHILS ABSOLUTE AUTO 10.01 K/mm3 (1.96-9.15); NEUTROPHILS PERCENT AUTO 91 % (41-73); Platelet Count 134 K/mm3 (150-400); RDW Coefficient Variation 15.1 % (11.7-14.2); RDW Standard Deviation 45.1 fL (35.1-46.3); Red Blood Cell Count 3.79 M/mm3 (4.30-5.90); White Blood Cell Count 10.96 K/mm3 (4.00-11.30)
[2022-11-04 06:58] LABS: Alanine Aminotransfer (ALT/SGP 34 U/L (12-78); Albumin, Blood 1.8 g/dL (3.4-5.0); Albumin/Globulin Ratio 0.5 (0.8-1.8); Alk Phos 152 U/L (50-136); Anion Gap 6 mmol/L (6-16); Aspartate Aminotrans (AST/SGOT 74 U/L (12-37); Bilirubin, Total 0.1 mg/dL (0.1-1.0); Blood Urea Nitrogen 47 mg/dL (8-24); Bun/Creatinine Ratio 23.4 (12.0-20.0); CO2, Blood 16 mmol/L (21-32); Calcium, Blood 10.5 mg/dL (8.5-10.1); Chloride, Blood 126 mmol/L (98-108); Creatinine, Blood 2.01 mg/dL (0.60-1.20); Globulin, Blood 3.4 g/dL (2.2-4.0); Glomerular Filtration Rate 34 (60-); Glucose, Blood 211 mg/dL (70-99); Potassium, Blood 4.3 mmol/L (3.5-5.5); Sodium, Blood 148 mmol/L (136-145); Total Protein, Blood 5.2 g/dL (6.4-8.2); Vancomycin, Random 13.3 ug/mL
--- NOTE | 2022-11-04 09:00 | NUR ---
pt laying in bed awake, a/ox2, knows he's in hosp, is pretty flat, sleepy, but able to answer questions, returns to sleep when left undisturbed, lungs clear dim in bases, resp even and unlabored, no cough noted, on r/a, hrr, no edema noted, ppp+1, cap refill <3 sec, vs stable, afebrile, pivx2, sites are clear and patent, infusing d5 1/2 ns, btx4, abd flat soft nontender, incont of urine, briefs in place, skin c/w/d, weak, danita, call light in reach.
[2022-11-04 09:55] LABS: Bun/Creatinine Ratio 26.1 (12.0-20.0); Calcium, Blood 10.8 mg/dL (8.5-10.1); Creatinine, Blood 1.88 mg/dL (0.60-1.20); Potassium, Blood 4.3 mmol/L (3.5-5.5)
--- NOTE | 2022-11-04 18:28 | NUR ---
pt has a productive cough, a bit confused, hands tremble, redirects easily. no acute changes this shift. call light in reach.
--- NOTE | 2022-11-04 23:48 | NUR ---
PATIENT REPORTING COUGH WITH NAUSEA AND ABDOMEN PAIN, NORCO GIVEN AND PO ZOFRAN. HOSPITALIST DR SHEPHERD ORDERED PO TESSALON 200 MG FOR COUGH AND TUMS 1,000 MG FOR UPSET STOMACH. WCTM.
--- NOTE | 2022-11-05 04:47 | NUR ---
SHIFT SUMMARY PATIENT HAD COUGH, UPSET STOMACH, AND ABDOMINAL PAIN. NORCO, TESSALON 200 MG, AND TUMS 1,000 MG GIVEN. COUGH STOPPED BUT UPSET STOMACH CONTINUED WITH BREAKTHROUGH PAIN AND NAUSEOUS. HOSPITALIST DR GARCIA ORDERED GI COCKTAIL X ONE, IV ZOFRAN 4 MG, AND IV FENTANYL 25 MCG PRN. PATIENT REPORTED RELIEF WITH NAUSEA, UPSET STOMACH, AND ABDOMINAL PAIN. PATIENT ABLE TO SLEEP. AXO X 2 AND BEDREST. PIVS REMAIN INTACT. D-5 INFUSING AT 150 mL/HR. HAND TREMORS. NPO EXCEPT ICE CHIPS AND MEDICATION. VSS/AFEBRILE. CALL LIGHT IN REACH. BED IN LOWEST POSITION. WILL CONTINUE TO MONITOR UNTIL DAY SHIFT NURSE ASSUMES CARE.
--- NOTE | 2022-11-05 19:01 | NUR ---
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 ORIENTED TO SELF AND FAMILY ONLY, WAS TREMULOUS IN ALL EXTREMITIES AND QUITE WEAK. DIFFICULTY FOLLOWING DIRECTIONS. TOLERATING MEDS CRUSHED IN PUDDING. INCONTINENT OF B&B, HAVING DIARRHEA. HAS BEEN NPO ALL DAY. ON ROOM AIR. AT BEDSIDE PART OF THE DAY. IVF DISCONTINUED.
--- NOTE | 2022-11-06 04:07 | NUR ---
SHIFT SUMMARY PT HAS BEEN SLEEPING MOST OF SHIFT. AWOKE AND TRIED TO GET OOB EARLIER IN SHIFT. ANSWERED YES WHEN ASKED IF HIS BACK HURT. WAS GRIMACING, MOVING AROUND, MOANING AND HAD RAPID BREATHING. MED FOR PAIN AND ANXIETY PER EMAR WAS EFFECTIVE. COMFORT CARE ASSESSMENTS COMPLETED EVERY 4 HOURS. WILL CONTINUE TO MONITOR AND PROVIDE CARE T/O SHIFT.
--- NOTE | 2022-11-06 13:27 | NUR ---
Spiritual care visit conducted. Patient is lying in bed and minimally responsive. Christy, pt's spouse is bedside. Christy tells me about the patient's life, personality and end of life goals. We talk about family support and family being in full alignment with moving to comfort meassures only. She shares about her strong Yazidi tarsha nd how this frames her thoughts on , dying and the afterlife. We talk about the feelings of being overwhelmed by the reality of his sudden decline and all the details that surround this. I normalize her experience, encourage self-care, and provide therapeutic listening, gentle director of group counseling program and support. Christy responded well and showed signs of being encouraged in her tarsha and having an increase in peace. I will continue to reamin available to patient and family.
--- NOTE | 2022-11-06 13:30 | NUR ---
Comfort care visit: Met with Ferny's , Kristina and brother at the bedside. Answered questions and discussed EOL signs. Kristina and bedside nurse, Leilani, report report a significant decline in condition from yesterday. Yesterday Ferny was talking and interacting. Today he is somulent. He doesn't appear to be in any discomfort at this time. Chasity BERNARD, visited while this repairer typewriter was present. Discharge planning will be started with [facility]. If pt continues to decline rapidly, discharge home with hospice may be inappropriate. Emotional support provided to pt and family. Comfort cart ordered. PC to continue to follow for symptom management and pt/family support prn.
--- NOTE | 2022-11-06 19:13 | NUR ---
SHIFT SUMMARY: ON COMFORT CARE. DIARRHEA HAS SLOWED. INCONTINENT OF BLADDER, ATTENDS IN PLACE. MEDICATED WITH ATIVAN, NORCO, AND ROXANOL PER EMAR. SLEEPING, APPEARS CALM. FAMILY AT BEDSIDE MOST OF THE DAY.
--- NOTE | 2022-11-07 11:15 | NUR ---
PT RESTING COMF, SYMPTOMS MANAGED WITH CURRENT MEDICATRION REGIMEN. PT AWAITING TRANSFER HOME TO BE ADMITTED TO HOSPICE. NO NEEDS OR CONCERNS AT THIS TIME.
--- NOTE | 2022-11-07 12:50 | NUR ---
DISCHARGE MEDICATED WITH DILAUDID 1MG X1 PRIOR TO REMOVING PT IV SITE. PT [facility]30. CONTINUE POC.
--- NOTE | 2022-11-07 14:01 | NUR ---
DISCHAR[facility]. PT TRANSFERED WITH 3 ASSIST AND SLIDER SHEET. PT AWAKE. CONTINUE POC.
== END 2022-11-07 13:54 | disposition hospice, home (50) | DRG 871 ==
LOC: ER 03:44 → MEDS 03:45
PROVIDERS: Emergency Medicine; Pharmacist; ADMIT Internal Medicine
DX: A41.9 Sepsis, unspecified organism (principal); G93.41 Metabolic encephalopathy; J18.9 Pneumonia, unspecified organism; E87.20 Acidosis, unspecified; N17.9 Acute kidney failure, unspecified; E87.0 Hyperosmolality and hypernatremia; N39.0 Urinary tract infection, site not specified; C78.7 Secondary malignant neoplasm of liver and intrahepatic bile duct; C79.11 Secondary malignant neoplasm of bladder; C77.1 Secondary and unspecified malignant neoplasm of intrathoracic lymph nodes; G89.29 Other chronic pain; Z51.5 Encounter for palliative care; Z66 Do not resuscitate; N18.32 Chronic kidney disease, stage 3b; Z20.822 Contact with and (suspected) exposure to COVID-19; I12.9 Hypertensive chronic kidney disease with stage 1 through stage 4 chronic kidney disease, or unspecified chronic kidney disease; E11.22 Type 2 diabetes mellitus with diabetic chronic kidney disease; K59.00 Constipation, unspecified; E78.5 Hyperlipidemia, unspecified; M21.372 Foot drop, left foot; M54.50 Low back pain, unspecified; Z72.89 Other problems related to lifestyle; Z87.442 Personal history of urinary calculi; Z85.46 Personal history of malignant neoplasm of prostate; Z90.79 Acquired absence of other genital organ(s); Z98.890 Other specified postprocedural states; Z79.2 Long term (current) use of antibiotics; Z79.01 Long term (current) use of anticoagulants; Z79.82 Long term (current) use of aspirin; Z79.52 Long term (current) use of systemic steroids; Z79.84 Long term (current) use of oral hypoglycemic drugs; Z79.899 Other long term (current) drug therapy
CPT/HCPCS: 0241U; 36415; 70450; 71045; 71250; 74176; 80048; 80053; 80202; 81001; 82570; 82947; 83605; 83690; 84145; 84153; 84300; 84484; 85025; 87040; 92526; 92610; 93005; 93010; 96361; 96365; 96366; 96367; 96375; 96376; 97110; 97116; 97162; 97165; 97530; 99285-25; A9270; G0378; J0456; J0692; J0696; J1170; J1644; J1885; J2060; J2270; J2405; J2543; J3010; J3370; J3411; J7030; J7042; J7050; J7070; J7512